=== PATIENT | male | born 1955 ===

== ENCOUNTER 2018-09-21 10:24 | Inpatient (IN) | payer OTHER ==
[2018-09-21] MEDS ORDERED: ASPIRIN 81 MG CHEWABLE TABLETS PO ONE (10:33)
--- NOTE | 2018-09-21 10:33 | PDOC ---
History of Present Illness - General Chief Complaint: Chest Pain Stated Complaint: CHEST PAIN Time Seen by Provider: 09/21/18 10:31 History Source: Patient Exam Limitations: No Limitations - History of Present Illness Initial Comments: 09/21/18 11:08 63y M hx of htn, hl, dm, presents with complaint of chest pain. Pt has been having intermittent episodes of cp for the past month that is described a heaviness in the left chest that radiates to the L arm and is occasionally associated with mild nausea/diaphorsis. Had one last night lasting approx 4 hours, then another one this morning about 45 min ago prior to arrival - currentlya pprox 09/18 (but was 9/10 last night). Pt denies any worsening of the pain with exertion, and the episodes occur randomly. Pt with recent travel to [place] but episodes predated travelling to [place]. No associated fever, cough, hemopytisis, calf pain. no association with food intake. denies smoking, recretional drug use, +social etoh family hx: mom with CABG, brother @61 with CAD Head Refrigerating Engineer: Dr. Joseline Leonardo Past History - Past Medical History Allergies/Adverse Reactions: Allergies Allergy/AdvReac Type Severity Reaction Status Date / Time No Known Allergies Allergy Verified 09/21/18 10:25 Home Medications: Ambulatory Orders Amlodipine Besylate 10 mg PO DAILY 09/21/18 Nebivolol HCl [Bystolic] 20 mg PO DAILY 09/21/18 Aspirin Coated [Ecotrin -] 325 mg PO DAILY tablet. 09/22/18 Atorvastatin Ca [Lipitor] 80 mg PO HS tablet 09/22/18 Heparin - 1,000 unit IVPUSH PRN PRN vial 09/22/18 Heparin - 5,000 unit IVPUSH PRN PRN #0 vial 09/22/18 Heparin - 5,000 unit SQ TID vial 09/22/18 Insulin (Levemir) [Levemir Vial] 54 units SQ HS units 09/22/18 Insulin Sliding Scale [Novolog Vial Sliding Scale -] 1 vial SQ ACHS units 09/22 Nitroglycerin Sublingual [Nitrostat -] 0.4 mg SL Q5M PRN tab 09/22/18 Pantoprazole Sodium [Protonix -] 40 mg PO BID tablet.ec 09/22/18 Review of Systems - Review of Systems Able to Perform ROS?: Yes Comments:: 09/21/18 11:12 Constitutional - no reported Fever, Chills, HEENT: no reported vision changes, sore throat Respiratory: no reported cough, sob, hemoptysis Cardiac: +chest pain, no reported palpitations, light headedness, leg swelling Abd/GI: no reported abd pain, nausea, vomiting, blood per rectum, melena, diarrhea : no reported dysuria, frequency, discharge Musculskelatal - no reported back pain, joint swelling skin - no reported bruising, erythema, rash neurological: no reported headache, numbness, focal weakness, tingling, ataxia, hematologic: no reported easy bruising, easy bleeding *Physical Exam - Vital Signs Last Vital Signs Temp Pulse Resp BP Pulse Ox 98 F 57 L 18 110/67 98 09/23/18 01:05 09/23/18 01:05 09/23/18 01:05 09/23/18 01:05 09/22/18 22:00 - Physical Exam Comments: 09/21/18 11:13 GENERAL: The patient is awake, alert, and fully oriented, Nontoxic - in no acute distress. HEAD: Normocephalic, atraumatic. EYES: extraocular movements intact, sclera anicteric, conjunctiva clear. ENT: Normal voice, Moist mucous membranes. NECK: Normal range of motion, supple LUNGS: Breath sounds equal, clear to auscultation bilaterally. No wheezes, no rhonchi, no rales. HEART: Regular rate and rhythm, normal S1 and S2 without murmur, rub or gallop. ABDOMEN: Soft, nontender, No guarding, no rebound. . No CVA tenderness EXTREMITIES: Normal range of motion, no edema. neg homans, no calft enderness NEUROLOGICAL: No facial assymetry, Normal speech, PSYCH: Normal mood, normal affect. SKIN: Warm, Dry, normal turgor, Heart Score/ECG Review - ECG Impressions Comment:: 09/21/18 11:13 Twelve-lead EKG was performed and reviewed by me. There is normal sinus rhythm with a normal rate. Rate of 68 First degree AV block no st changes suggestive of acute ischemia ED Treatment Course - LABORATORY CBC & Chemistry Diagram: 09/22/18 08:00 09/22/18 08:00 - ADDITIONAL ORDERS Additional order review: 09/22/18 09/22/18 09/21/18 08:00 06:46 23:58 RBC 4.86 MCV 90.4 MCHC 33.2 RDW 12.5 MPV 8.7 Neutrophils % 59.9 Lymphocytes % 26.3 D Monocytes % 7.9 Eosinophils % 5.2 H Basophils % 0.7 POC Glucometer 135 291 09/21/18 11:24 RBC 4.82 MCV 91.2 MCHC 33.4 RDW 12.8 MPV 8.4 Neutrophils % 65.5 Lymphocytes % 19.9 Monocytes % 9.9 Eosinophils % 4.0 Basophils % 0.7 POC Glucometer - RADIOLOGY Radiology Studies Ordered: Category Date Time Status CHEST PA & LAT [RAD] Stat Radiology 09/21/18 10:33 Completed - Medications Given in the ED: ED Medications Discontinued Medications Generic Name Dose Route Start Last Admin Trade Name Freq PRN Reason Stop Dose Admin Aspirin 162 mg 09/21/18 10:33 09/21/18 11:31 Asa - PO 09/21/18 10:34 Not Given ONCE ONE Atorvastatin Calcium 40 mg 09/21/18 17:43 09/21/18 18:38 Lipitor - PO 09/21/18 17:44 40 mg ONCE ONE Administration Atorvastatin Calcium 40 mg 09/21/18 20:30 09/22/18 03:23 Lipitor - PO 09/21/18 20:31 40 mg ONCE ONE Administration Clopidogrel Bisulfate 300 mg 09/22/18 08:16 09/22/18 17:10 Plavix - PO 09/22/18 08:17 Not Given ONCE ONE Heparin Sodium (Porcine) 5,000 unit 09/21/18 22:00 09/21/18 23:00 Heparin - SQ 5,000 unit TID LAURA Administration Magnesium Sulfate 1 gm 09/21/18 17:34 09/21/18 18:38 Magnesium Sulfate IVPB 09/21/18 17:35 1 gm ONCE ONE Administration Magnesium Sulfate 1 gm 09/22/18 09:55 09/22/18 10:50 Magnesium Sulfate IVPB 09/22/18 09:56 1 gm ONCE ONE Administration Nitroglycerin 0.4 mg 09/21/18 11:12 09/21/18 11:15 Nitrostat - SL 09/21/18 11:13 0.4 mg ONCE ONE Administration Pantoprazole Sodium 40 mg 09/21/18 22:00 09/22/18 09:52 Protonix - PO 40 mg BID LAURA Administration Medical Decision Making - Medical Decision Making 09/21/18 11:15 ddx - acs, gastritis, will ck trops, cmp, cbc ekg to screen for acs cxr to screen for pulm disease will aaron cardiology regarding dispo - would like pt to get expediated sterss test 09/21/18 12:36 labs unremarkable will discuss with dr. Leonardo (cardiology) regarding disposition 09/21/18 12:[address] leonardo recommends obtaining 2nd trop / ekg - as well as dimer to screen for pe if negative pt can be dc to fu with him on sunday for stress and foruther eavluation 09/21/18 15:32 pts trop bumped to 0.13 will admit for further management will notify his cardiolgoist no current cp 09/21/18 16:[address] Spaulding (covernig for dr. Virk) - agree with admission and inpatient workup also aaron Torres - agree with admission to [facility] for further management under Dr. Carrillo's service Dr. Leonardo was notified - agrees pt shoould stay for further workup Case discussed in detail with admitting physician including history, physical exam and ancillary studies. Admitting physician has assumed care for the patient, will follow all pending diagnostics and will complete the evaluation and treatment. *DC/Admit/Observation/Transfer Diagnosis at time of Disposition: Acute coronary syndrome - Discharge Dispostion Condition at time of disposition: Stable Decision to Admit order: Yes - Referrals - Patient Instructions - Post Discharge Activity
[2018-09-21] MEDS ORDERED: NITROGLYCERIN SUBLINGUAL 1/150 0.4 MG TAB SL ONE (11:12)
[2018-09-21] MEDS ORDERED: NITROGLYCERIN SUBLINGUAL 1/150 0.4 MG TAB ONE (11:19)
[2018-09-21 11:42] LABS: BASO % 0.7 % (0-2.0); HEMOGLOBIN 14.7 GM/dl (11.7-16.9); LYMPH % 19.9 % (8-40); MCH 30.5 pg (25.7-33.7); MCHC 33.4 g/dl (32.0-35.9); MEAN CELL VOLUME 91.2 fl (80-96); MEAN PLT VOLUME 8.4 fl (7.5-11.1); MONO % 9.9 % (3.8-10.2); NEUT % 65.5 % (42.8-82.8); PLATELET COUNT 328 K/MM3 (134-434); RBC 4.82 M/mm3 (4.00-5.60); RDW 12.8 % (11.9-15.9); WHITE BLOOD COUNT 9.6 K/mm3 (4.0-10.8)
[2018-09-21 11:47] LABS: INR 1.02 (0.82-1.09); PROTHROMBIN TIME (PATIENT) 11.4 SEC (10.2-13.0)
[2018-09-21 11:50] LABS: ALBUMIN 3.4 g/dl (3.4-5.0); ALK PHOS 86 U/L (45-117); ANION GAP 9 MMOL/L (8-16); BILIRUBIN,TOTAL 0.4 mg/dl (0.2-1); BLOOD UREA NITROGEN 11 mg/dl (7-18); CALCIUM 8.6 mg/dl (8.5-10); CHLORIDE 101 mmol/L (98-107); CO2 23 mmol/L (21-32); CREATININE 0.9 mg/dl (0.55-1.3); GLUCOSE,RANDOM 243 mg/dl (74-106); MAGNESIUM 1.9 mg/dL (1.8-2.4); POTASSIUM 4.2 mmol/L (3.5-5.1); SGOT/AST 22 U/L (15-37); SGPT/ALT 21 U/L (13-61); SODIUM 133 mmol/L (136-145); TOT PROT 6.6 g/dl (6.4-8.2)
--- NOTE | 2018-09-21 17:18 | HP ---
CHIEF COMPLAINT: Chest pain Inventory Coordinator: Dr. Joseline Leonardo HISTORY OF PRESENT ILLNESS: 63 year-old male with a PMH significant for HTN, HLD, IDDM, and acid reflux. Presented to the ED with a complaint of chest pain. Patient's first episode of chest pain was on September 03 while traveling in a car in [facility] on vacation. He was seen at a local hospital, was told his ECG looked OK, and was given an antacid. Since then the patient has had similar intermittent episodes. He describes the pain as a heaviness in the left chest that radiates to the left arm and is occasionally associated with mild nausea and diaphoresis. The pain is never associated with exertion and occurs randomly, e.g. while sleeping, reading, riding in a car. Patient works out almost daily, lifts weights, and has never had the pain during exercise. Last night patient was awoken from sleep with the pain. He took an antacid and was able to go back to sleep. The pain lasted about 4 hours. This morning, patient woke up feeling well, ate breakfast, and was reading when the pain recurred. He came to the ED where he was given nitroglycerin and the pain was relieved. Patient denies SOB, DAVIDSON, lower extremity swelling, orthopnea, dizziness, palpitations. He denies fever, sweats, chills. He denies recent illness. His diabetes is well-controlled, his last A1C was ~7. ER course was notable for: (1) Troponin 0.03-->0.13 Recent Travel: [facility] PAST MEDICAL HISTORY: Hypertension Hyperlipidemia IDDM PAST SURGICAL HISTORY: Bilateral knee replacements Social History: lives in [place] with and son, retired from [employer] Smoking: never Alcohol: occasional Drugs: no Family History: Mother had CABG, brother @ 61 with CAD Allergies No Known Allergies Allergy (Verified 09/21/18 10:25) HOME MEDICATIONS: Home Medications Medication Instructions Recorded Amlodipine Besylate 10 mg PO DAILY 09/21/18 Aspirin [ASA -] 4 tab PO DAILY 09/21/18 Dapagliflozin/Metformin HCl 1 each PO DAILY 09/21/18 [Xigduo Xr 10 mg-500 mg Tablet] Insulin Degludec [Tresiba 54 unit SQ DAILY 09/21/18 Flextouch U-100] Nebivolol HCl [Bystolic] 20 mg PO DAILY 09/21/18 Semaglutide [Ozempic] 1 mg SQ WEEKLY 09/21/18 REVIEW OF SYSTEMS CONSTITUTIONAL: Absent: fever, chills, diaphoresis, generalized weakness, malaise, loss of appetite, weight change HEENT: Absent: rhinorrhea, nasal congestion, throat pain, throat swelling, difficulty swallowing, mouth swelling, ear pain, eye pain, visual changes CARDIOVASCULAR: +left sided chest pain, left arm pain/numbness, intermittent; occasionally associated with nausea, diaphoresis Absent: chest pain, syncope, palpitations, irregular heart rate, lightheadedness , peripheral edema RESPIRATORY: Absent: cough, shortness of breath, dyspnea with exertion, orthopnea, wheezing, stridor, hemoptysis GASTROINTESTINAL: Absent: abdominal pain, abdominal distension, nausea, vomiting, diarrhea, constipation, melena, hematochezia GENITOURINARY: Absent: dysuria, frequency, urgency, hesitancy, hematuria, flank pain, genital pain MUSCULOSKELETAL: Absent: myalgia, arthralgia, joint swelling, back pain, neck pain SKIN: Absent: rash, itching, pallor HEMATOLOGIC/IMMUNOLOGIC: Absent: easy bleeding, easy bruising, lymphadenopathy, frequent infections ENDOCRINE: Absent: unexplained weight gain, unexplained weight loss, heat intolerance, cold intolerance NEUROLOGIC: Absent: headache, focal weakness or paresthesias, dizziness, unsteady gait, seizure, mental status changes, bladder or bowel incontinence PSYCHIATRIC: Absent: anxiety, depression, suicidal or homicidal ideation, hallucinations. PHYSICAL EXAMINATION Vital Signs - 24 hr 09/21/18 09/21/18 09/21/18 10:24 12:08 14:52 Temperature 98.5 F Pulse Rate 75 Pulse Rate [ 60 60 Right] Respiratory 20 17 20 Rate Blood Pressure 144/85 Blood Pressure 107/75 116/63 [Right Arm] O2 Sat by Pulse 99 98 96 Oximetry (%) 09/21/18 15:47 Temperature Pulse Rate Pulse Rate [ 63 Right] Respiratory 18 Rate Blood Pressure Blood Pressure 119/72 [Right Arm] O2 Sat by Pulse 95 Oximetry (%) GENERAL: Awake, alert, and fully oriented, in no acute distress. HEAD: Normal with no signs of trauma. EYES: Pupils equal, round and reactive to light, extraocular movements intact, sclera anicteric, conjunctiva clear. No lid lag. EARS, NOSE, THROAT: Ears normal, nares patent, oropharynx clear without exudates. Moist mucous membranes. NECK: Normal range of motion, supple without lymphadenopathy, JVD, or masses. LUNGS: Breath sounds equal, clear to auscultation bilaterally. No wheezes, and no crackles. No accessory muscle use. HEART: Regular rate and rhythm, normal S1 and S2 ABDOMEN: Soft, nontender, not distended MUSCULOSKELETAL: Normal range of motion at all joints. No bony deformities or tenderness. No CVA tenderness. UPPER EXTREMITIES: 2+ pulses, warm, well-perfused. No cyanosis. No clubbing. No peripheral edema. LOWER EXTREMITIES: 2+ pulses, warm, well-perfused. No calf tenderness. No peripheral edema. NEUROLOGICAL: Cranial nerves II-XII intact. Normal speech. Normal gait. Laboratory Results - last 24 hr 09/21/18 09/21/18 09/21/18 11:24 11:24 11:24 WBC 9.6 RBC 4.82 Hgb 14.7 Hct 44.0 MCV 91.2 MCH 30.5 MCHC 33.4 RDW 12.8 Plt Count 328 MPV 8.4 Absolute Neuts (auto) 6.2 Neutrophils % 65.5 Lymphocytes % 19.9 Monocytes % 9.9 Eosinophils % 4.0 Basophils % 0.7 PT with INR 11.4 INR 1.02 D-Dimer Sodium 133 L Potassium 4.2 Chloride 101 Carbon Dioxide 23 Anion Gap 9 BUN 11 Creatinine 0.9 Creat Clearance w eGFR 85.50 Random Glucose 243 H Calcium 8.6 Magnesium 1.9 Total Bilirubin 0.4 AST 22 ALT 21 Alkaline Phosphatase 86 Creatine Kinase Troponin I Total Protein 6.6 Albumin 3.4 09/21/18 09/21/18 09/21/18 11:24 11:24 13:06 WBC RBC Hgb Hct MCV MCH MCHC RDW Plt Count MPV Absolute Neuts (auto) Neutrophils % Lymphocytes % Monocytes % Eosinophils % Basophils % PT with INR INR D-Dimer < 215 Sodium Potassium Chloride Carbon Dioxide Anion Gap BUN Creatinine Creat Clearance w eGFR Random Glucose Calcium Magnesium Total Bilirubin AST ALT Alkaline Phosphatase Creatine Kinase 114 Troponin I < 0.03 Total Protein Albumin 09/21/18 09/21/18 14:50 14:50 WBC RBC Hgb Hct MCV MCH MCHC RDW Plt Count MPV Absolute Neuts (auto) Neutrophils % Lymphocytes % Monocytes % Eosinophils % Basophils % PT with INR INR D-Dimer Sodium Potassium Chloride Carbon Dioxide Anion Gap BUN Creatinine Creat Clearance w eGFR Random Glucose Calcium Magnesium Total Bilirubin AST ALT Alkaline Phosphatase Creatine Kinase 116 Troponin I 0.13 H Total Protein Albumin ASSESSMENT/PLAN 63 year-old male with a PMH significant for HTN, HLD, IDDM, and acid reflux. Placed on observation for chest pain and elevated troponin. Chest pain --troponin 0.03-->0.13; third one at 6:00pm --CXR unremarkable --ECG not suggestive of acute ischemic event --telemetry monitoring --continue ASA, nebivolol, amlodipine; start Lipitor 40mg; nitro SL PRN --A1C, TSH, lipid panel ordered --Wells score zero, d-dimer <215, low suspicion for PE, no further workup --follows regularly with a it program auditor, last nuclear stress 3 years ago negative --cardiology consult requested Acid reflux --takes Nexium on occasion for acid reflux, has recently modified his diet and the episodes occur less frequently --no h/o ulcers, never had EGD --protonix PO BID --chest pain episodes tend to occur after eating, some associated nausea; US gallbladder Hypertension --BP stable --continue nebivolol, amlodipine Hyperlipidemia --start Lipitor IDDM --Novolog sliding scale coverage --Levemir 54U qhs FEN Fluids: PO intake adequate Electrolytes: replete as indicated; Mg>2, K>4 Nutrition: NPO pending next troponin DVT prophylaxis: subq heparin Dispo: continues to require observation. Full code. Visit type - Emergency Visit Emergency Visit: Yes ED Registration Date: 09/21/18 Care time: The patient presented to the Emergency Department on the above date and was hospitalized for further evaluation of their emergent condition. - New Patient This patient is new to me today: Yes Date on this admission: 09/21/18 - Critical Care Critical Care patient: No
[2018-09-21] MEDS ORDERED: MAGNESIUM SULF 50% (8.12 MEQ/2 ML-1 GM VIAL) IVPB ONE (17:34)
[2018-09-21] MEDS ORDERED: ATORVASTATIN CA 40 MG TABLET (FP) PO ONE ×2 (17:43→20:30)
[2018-09-21] MEDS ORDERED: NITROGLYCERIN SUBLINGUAL 1/150 0.4 MG TAB SL PRN (17:45)
[2018-09-21 18:20] VITALS: BMI 27.5
--- NOTE | 2018-09-21 19:57 | HOSP ---
Subjective - Review of Symptoms Events since last encounter: Hospitalist Encounter Patient's Troponin trending upward 3rd 0.34 Subjective: Assessment: 63 year-old male with a PMH significant for HTN, HLD, IDDM, and Acid Reflux. Placed on observation for chest pain and elevated Troponin I. Plan: Call placed to Dr. Spaulding EKG- stat Will transfer to [facility] Telemetry when bed available Continue with current regimen Discussed with Dr. Spaulding, no change in current regimen, would like patient to be transferred to [facility]- Stress Test 06:20 Patient reported to RN that he was having CP Heparin Protocol initiated Per RN Dr. Spaulding aware Patient awaiting Telemetry Bed at [facility] Will update Day REDEVELOPMENT MANAGER of this mornings events Physical Examination Vital Signs: Vital Signs Temperature 97.9 F 09/21/18 17:54 Pulse Rate 60 09/21/18 17:54 Respiratory Rate 18 09/21/18 17:54 Blood Pressure 132/79 09/21/18 17:54 O2 Sat by Pulse Oximetry (%) 95 09/21/18 15:47 Labs: CBC, BMP 09/21/18 11:24 09/21/18 11:24
[2018-09-21 21:27] LABS: CHOLESTEROL 134 mg/dl (50-200); HDL CHOLESTEROL 32 mg/dl (40-60); LDL CHOLESTEROL (ONLY DFH) 70 mg/dl (5-100); TRIGLYCERIDES 158 mg/dl (0-150)
[2018-09-21] MEDS: INSULIN SLIDING SCALE (NOVOLOG) 1 VIAL SQ SCH (22:00)
[2018-09-21] MEDS ORDERED: HEPARIN NA (PORCINE) 5,000 UNITS/ML 1ML VIAL SQ SCH (22:00)
[2018-09-22] MEDS: PANTOPRAZOLE 40 MG TABLET (FP) PO SCH ×2 (03:21→09:52)
[2018-09-22] MEDS: INSULIN (LEVEMIR) 100 UNITS/ML UNITS SQ SCH ×2 (03:21→21:44)
[2018-09-22] MEDS ORDERED: HEPARIN NA (PORCINE) 5,000 UNITS/ML 1ML VIAL IVPUSH PRN ×2 (06:33)
[2018-09-22] MEDS: HEPARIN INFUSION - 25,000 UNITS/500 ML INFUS.BAG IVPB SCH (06:50)
[2018-09-22] MEDS: INSULIN SLIDING SCALE (NOVOLOG) 1 VIAL SQ SCH ×4 (06:50→22:22)
--- NOTE | 2018-09-22 08:08 | CON.CARD ---
Consult Consult Specialty:: Cardiology Referred by:: Hospitalist Reason for Consultation:: Cardiar evaluation - History of Present Illness Chief Complaint: Chest pain History of Present Illness: Patient is a 63 year old male of [place] with underlying history of HTN, hypercholesterolemia and DM who presents with left substernal chest pressure radiating to left arm. This happened several time prompting him to come into the hospital. His initial troponin was negative, but it has increased to 0.75. He had chest pressure again last night and thus was started on Heparin drip. He appears comfortable this morning. He denies shortness of breath or palpitations. He denies paroxysmal nocturnal dyspnea or orthopnea. He denies fever or chills. He denies nausea, vomiting, diarrhea or abdominal pain. He denies headache or lightheadedness. Cruise Director: Jorden Grande MD - History Source History Provided By: Patient, Medical Record Limitations to Obtaining History: No Limitations - Past Medical History Cardio/Vascular: Yes: HTN, Hyperlipdemia Endocrine: Yes: Diabetes Mellitus - Past Surgical History Past Surgical History: Yes: Joint Replacement - Alcohol/Substance Use Hx Alcohol Use: Yes (DAILY 2-3 SHOTS VODKA) - Smoking History Smoking history: Never smoked Have you smoked in the past 12 months: No Home Medications - Allergies Allergies/Adverse Reactions: Allergies Allergy/AdvReac Type Severity Reaction Status Date / Time No Known Allergies Allergy Verified 09/21/18 10:25 - Home Medications Home Medications: Ambulatory Orders Amlodipine Besylate 10 mg PO DAILY 09/21/18 Dapagliflozin/Metformin HCl [Xigduo Xr 10 mg-500 mg Tablet] 1 each PO DAILY Insulin Degludec [Tresiba Flextouch U-100] 54 unit SQ DAILY 09/21/18 Nebivolol HCl [Bystolic] 20 mg PO DAILY 09/21/18 Rosuvastatin Calcium [Crestor] 5 mg PO DAILY 09/21/18 Semaglutide [Ozempic] 1 mg SQ WEEKLY 09/21/18 Family Disease History - Family Disease History Other Family History: History of DM and HTN Review of Systems - Review of Systems Constitutional: denies: Chills, Fever Cardiovascular: reports: Chest Pain. denies: Palpitations, Shortness of Breath Respiratory: denies: Cough, Hemoptysis, Orthopnea, PND, SOB, SOB on Exertion Gastrointestinal: denies: Abdominal Pain, Constipation, Diarrhea, Melena, Nausea , Rectal Bleeding, Vomiting Genitourinary: denies: Dysuria, Hematuria Neurological: denies: Dizziness, Headache, Seizure, Syncope Vital Signs: Vital Signs Temperature 98.3 F 09/22/18 05:00 Pulse Rate 66 09/22/18 05:00 Respiratory Rate 20 09/22/18 05:00 Blood Pressure 155/76 09/22/18 05:00 O2 Sat by Pulse Oximetry (%) 100 09/22/18 05:00 Eyes: Yes: PERRL HENT: Yes: Atraumatic Neck: Yes: Supple Respiratory: Yes: CTA Bilaterally Gastrointestinal: Yes: Normal Bowel Sounds, Soft. No: Tenderness Cardiovascular: Yes: Regular Rate and Rhythm JVD: No Carotid Bruit: No PMI: Non-Displaced Heart Sounds: Yes: S1, S2. No: Gallop Murmur: No: Systolic Murmur, Diastolic Murmur Edema: No - Other Data Labs, Other Data: CBC, BMP 09/21/18 11:24 09/21/18 11:24 INR, PTT INR 1.02 (0.82-1.09) 09/21/18 11:24 Troponin, BNP 09/21/18 09/21/18 09/21/18 11:24 14:50 19:00 Troponin I < 0.03 0.13 H 0.34 H 09/22/18 09/22/18 00:01 00:05 Troponin I Cancelled 0.75 H* Sinus rhythm 1st degree AV block Problem List - Problems (1) NSTEMI (non-ST elevated myocardial infarction) Code(s): I21.4 - NON-ST ELEVATION (NSTEMI) MYOCARDIAL INFARCTION (2) Diabetes mellitus Code(s): E11.9 - TYPE 2 DIABETES MELLITUS WITHOUT COMPLICATIONS (3) HTN (hypertension) Code(s): I10 - ESSENTIAL (PRIMARY) HYPERTENSION (4) Hypercholesterolemia Code(s): E78.00 - PURE HYPERCHOLESTEROLEMIA, UNSPECIFIED (5) Acute coronary syndrome Code(s): I24.9 - ACUTE ISCHEMIC HEART DISEASE, UNSPECIFIED Assessment/Plan 1. Clinical presentation c/w ACS/NSTEMI 2. HTN 3. DM 4. Hypercholesterolemia 5. ? COPD PLAN: 1. Continue Heparin drip 2. ASA +/- Plavix or Brilinta 3. Continue Bystolic 20 mg QD 4. Lipitor 80 mg QD 5. Continue Amlodipine 6. Consider early cardiac catheterization/coronary angiography. His human geography faculty member is affiliated with [facility]. Will attempt to reach out to him and initiate transfer Discussed with patient Further plans are to follow Anton Spaulding MD
[2018-09-22 08:40] LABS: BASO % 0.7 % (0-2.0); EOS % 5.2 % (0-4.5); HEMATOCRIT 43.9 % (35.4-49); HEMOGLOBIN 14.6 GM/dl (11.7-16.9); LYMPH % 26.3 % (8-40); MCHC 33.2 g/dl (32.0-35.9); MEAN CELL VOLUME 90.4 fl (80-96); MEAN PLT VOLUME 8.7 fl (7.5-11.1); MONO % 7.9 % (3.8-10.2); NEUT % 59.9 % (42.8-82.8); PLATELET COUNT 321 K/MM3 (134-434); RBC 4.86 M/mm3 (4.00-5.60); RDW 12.5 % (11.9-15.9); WHITE BLOOD COUNT 9.6 K/mm3 (4.0-10.8)
[2018-09-22 08:43] LABS: ALBUMIN 3.2 g/dl (3.4-5.0); ALK PHOS 81 U/L (45-117); ANION GAP 7 MMOL/L (8-16); BILIRUBIN,TOTAL 0.5 mg/dl (0.2-1); BLOOD UREA NITROGEN 10 mg/dl (7-18); CALCIUM 8.8 mg/dl (8.5-10); CHLORIDE 101 mmol/L (98-107); CO2 27 mmol/L (21-32); CREATININE 0.7 mg/dl (0.55-1.3); GLUCOSE,RANDOM 135 mg/dl (74-106); POTASSIUM 4.1 mmol/L (3.5-5.1); SGOT/AST 17 U/L (15-37); SGPT/ALT 20 U/L (13-61); SODIUM 135 mmol/L (136-145); TOT PROT 6.3 g/dl (6.4-8.2)
[2018-09-22] MEDS: CLOPIDOGREL BISULFATE 300 MG TABLET PO ONE ×2 (09:01→17:10)
--- NOTE | 2018-09-22 09:25 | DS ---
Physical Exam: SUBJECTIVE: Patient seen and examined at bedside. No further episodes of chest pain since ED. OBJECTIVE: Vital Signs (72 hours) 09/21/18 09/21/18 09/21/18 10:24 12:08 14:52 Temperature 98.5 F Pulse Rate 75 Pulse Rate [ 60 60 Right] Respiratory 20 17 20 Rate Blood Pressure 144/85 Blood Pressure 107/75 116/63 [Right Arm] O2 Sat by Pulse 99 98 96 Oximetry (%) 09/21/18 09/21/18 09/21/18 15:47 17:54 19:58 Temperature 97.9 F 98.4 F Pulse Rate 60 60 Pulse Rate [ 63 Right] Respiratory 18 18 18 Rate Blood Pressure 132/79 115/70 Blood Pressure 119/72 [Right Arm] O2 Sat by Pulse 95 94 L Oximetry (%) 09/21/18 09/22/18 09/22/18 22:39 00:06 01:53 Temperature 97.7 F 98.0 F 97.7 F Pulse Rate 77 63 66 Pulse Rate [ Right] Respiratory 19 18 19 Rate Blood Pressure 127/60 122/69 138/73 Blood Pressure [Right Arm] O2 Sat by Pulse 100 93 L 96 Oximetry (%) 09/22/18 09/22/18 05:00 07:55 Temperature 98.3 F 98.0 F Pulse Rate 66 56 L Pulse Rate [ Right] Respiratory 20 18 Rate Blood Pressure 155/76 132/79 Blood Pressure [Right Arm] O2 Sat by Pulse 100 Oximetry (%) PHYSICAL EXAM GENERAL: The patient is awake, alert, and fully oriented, in no acute distress. LUNGS: Breath sounds equal, clear to auscultation bilaterally, no wheezes, no crackles, no accessory muscle use. HEART: Regular rate and rhythm, S1, S2 ABDOMEN: Soft, nontender, nondistended EXTREMITIES: 2+ pulses, warm, well-perfused, no edema. NEUROLOGICAL: Cranial nerves II through XII grossly intact. Normal speech, gait not observed. Laboratory Tests 09/21/18 09/21/18 09/21/18 11:24 11:24 11:24 WBC 9.6 RBC 4.82 Hgb 14.7 Hct 44.0 MCV 91.2 MCH 30.5 MCHC 33.4 RDW 12.8 Plt Count 328 MPV 8.4 Absolute Neuts (auto) 6.2 Neutrophils % 65.5 Lymphocytes % 19.9 Monocytes % 9.9 Eosinophils % 4.0 Basophils % 0.7 PT with INR 11.4 INR 1.02 D-Dimer Sodium 133 L Potassium 4.2 Chloride 101 Carbon Dioxide 23 Anion Gap 9 BUN 11 Creatinine 0.9 Creat Clearance w eGFR 85.50 POC Glucometer Random Glucose 243 H Hemoglobin A1c % Calcium 8.6 Magnesium 1.9 Total Bilirubin 0.4 AST 22 ALT 21 Alkaline Phosphatase 86 Creatine Kinase Troponin I Total Protein 6.6 Albumin 3.4 Triglycerides Cholesterol Total LDL Cholesterol HDL Cholesterol TSH 09/21/18 09/21/18 09/21/18 11:24 11:24 13:06 WBC RBC Hgb Hct MCV MCH MCHC RDW Plt Count MPV Absolute Neuts (auto) Neutrophils % Lymphocytes % Monocytes % Eosinophils % Basophils % PT with INR INR D-Dimer < 215 Sodium Potassium Chloride Carbon Dioxide Anion Gap BUN Creatinine Creat Clearance w eGFR POC Glucometer Random Glucose Hemoglobin A1c % Calcium Magnesium Total Bilirubin AST ALT Alkaline Phosphatase Creatine Kinase 114 Troponin I < 0.03 Total Protein Albumin Triglycerides Cholesterol Total LDL Cholesterol HDL Cholesterol TSH 09/21/18 09/21/18 09/21/18 14:50 14:50 19:00 WBC RBC Hgb Hct MCV MCH MCHC RDW Plt Count MPV Absolute Neuts (auto) Neutrophils % Lymphocytes % Monocytes % Eosinophils % Basophils % PT with INR INR D-Dimer Sodium Potassium Chloride Carbon Dioxide Anion Gap BUN Creatinine Creat Clearance w eGFR POC Glucometer Random Glucose Hemoglobin A1c % Calcium Magnesium Total Bilirubin AST ALT Alkaline Phosphatase Creatine Kinase 116 Troponin I 0.13 H 0.34 H Total Protein Albumin Triglycerides Cholesterol Total LDL Cholesterol HDL Cholesterol TSH 09/21/18 09/21/18 09/21/18 19:00 19:00 19:00 WBC RBC Hgb Hct MCV MCH MCHC RDW Plt Count MPV Absolute Neuts (auto) Neutrophils % Lymphocytes % Monocytes % Eosinophils % Basophils % PT with INR INR D-Dimer Sodium Potassium Chloride Carbon Dioxide Anion Gap BUN Creatinine Creat Clearance w eGFR POC Glucometer Random Glucose Hemoglobin A1c % 7.6 H Calcium Magnesium Total Bilirubin AST ALT Alkaline Phosphatase Creatine Kinase Troponin I Total Protein Albumin Triglycerides 158 H Cholesterol 134 Total LDL Cholesterol 70 HDL Cholesterol 32 L TSH 2.00 09/21/18 09/22/18 09/22/18 23:58 00:01 00:05 WBC RBC Hgb Hct MCV MCH MCHC RDW Plt Count MPV Absolute Neuts (auto) Neutrophils % Lymphocytes % Monocytes % Eosinophils % Basophils % PT with INR INR D-Dimer Sodium Potassium Chloride Carbon Dioxide Anion Gap BUN Creatinine Creat Clearance w eGFR POC Glucometer 291 Random Glucose Hemoglobin A1c % Calcium Magnesium Total Bilirubin AST ALT Alkaline Phosphatase Creatine Kinase Troponin I Cancelled 0.75 H* Total Protein Albumin Triglycerides Cholesterol Total LDL Cholesterol HDL Cholesterol TSH 09/22/18 09/22/18 09/22/18 06:46 08:00 08:00 WBC 9.6 RBC 4.86 Hgb 14.6 Hct 43.9 MCV 90.4 MCH 30.0 MCHC 33.2 RDW 12.5 Plt Count 321 MPV 8.7 Absolute Neuts (auto) 5.7 Neutrophils % 59.9 Lymphocytes % 26.3 D Monocytes % 7.9 Eosinophils % 5.2 H Basophils % 0.7 PT with INR INR D-Dimer Sodium 135 L Potassium 4.1 Chloride 101 Carbon Dioxide 27 Anion Gap 7 L BUN 10 Creatinine 0.7 Creat Clearance w eGFR 114.27 POC Glucometer 135 Random Glucose 135 H Hemoglobin A1c % Calcium 8.8 Magnesium 2.0 Total Bilirubin 0.5 AST 17 ALT 20 Alkaline Phosphatase 81 Creatine Kinase Troponin I Total Protein 6.3 L Albumin 3.2 L Triglycerides Cholesterol Total LDL Cholesterol HDL Cholesterol TSH 09/22/18 08:00 WBC RBC Hgb Hct MCV MCH MCHC RDW Plt Count MPV Absolute Neuts (auto) Neutrophils % Lymphocytes % Monocytes % Eosinophils % Basophils % PT with INR INR D-Dimer Sodium Potassium Chloride Carbon Dioxide Anion Gap BUN Creatinine Creat Clearance w eGFR POC Glucometer Random Glucose Hemoglobin A1c % Calcium Magnesium Total Bilirubin AST ALT Alkaline Phosphatase Creatine Kinase Troponin I 0.33 H Total Protein Albumin Triglycerides Cholesterol Total LDL Cholesterol HDL Cholesterol TSH HOSPITAL COURSE: Date of Admission:09/21/18 Date of Discharge: 09/22/18 Pre hospital course 63 year-old male with a PMH significant for HTN, HLD, IDDM, and acid reflux. Presented to the ED with a complaint of chest pain. Patient's first episode of chest pain was on September 03 while traveling in a car in [facility] on vacation. He was seen at a local hospital, was told his ECG looked OK, and was given an antacid. Since then the patient has had similar intermittent episodes. He describes the pain as a heaviness in the left chest that radiates to the left arm and is occasionally associated with mild nausea and diaphoresis. The pain is never associated with exertion and occurs randomly, e.g. while sleeping, reading, riding in a car. Patient works out almost daily, lifts weights, and has never had the pain during exercise. Last night patient was awoken from sleep with the pain. He took an antacid and was able to go back to sleep. The pain lasted about 4 hours. This morning, patient woke up feeling well, ate breakfast, and was reading when the pain recurred. He came to the ED where he was given nitroglycerin and the pain was relieved. Patient denies SOB, DAVIDSON, lower extremity swelling, orthopnea, dizziness, palpitations. He denies fever, sweats, chills. He denies recent illness. His diabetes is well-controlled, his last A1C was ~7. ER course (1) Troponin 0.03-->0.13 Subsequent hospital course NSTEMI --troponin 0.03-->0.13-->0.34-->0.75-->0.33 --no ST elevations; ECG compared to 09/03/18 done in [place] (on patient's IPad) , no significant changes --continue ASA, nebivolol, amlodipine, Lipitor --Plavix 300mg x 1 on 09/22, heparin drip started, first PTT due at 1:00pm --follows regularly with a macaroni maker Dr. Joseline Leonardo [place]; last nuclear stress 3 years ago negative Acid reflux --takes Nexium on occasion for acid reflux --no h/o ulcers, never had EGD --protonix Hypertension --BP stable Hyperlipidemia --start Lipitor IDDM --Novolog sliding scale coverage --Levemir 54U qhs Dispo: accepted for transfer at [facility] by Dr. Pizarro; full code. Minutes to complete discharge: 35 Discharge Summary Reason For Visit: ACUTE ISCHEMIC HEART DISEASE, UNSPECIFIED Current Active Problems Acute coronary syndrome (Acute) Diabetes mellitus (Acute) HTN (hypertension) (Acute) Hypercholesterolemia (Acute) NSTEMI (non-ST elevated myocardial infarction) (Acute) Condition: Stable - Instructions Disposition: TRANSFER ACUTE CARE/OTHER HOSP - Home Medications Comprehensive Discharge Medication List: Ambulatory Orders Amlodipine Besylate 10 mg PO DAILY 09/21/18 Dapagliflozin/Metformin HCl [Xigduo Xr 10 mg-500 mg Tablet] 1 each PO DAILY Insulin Degludec [Tresiba Flextouch U-100] 54 unit SQ DAILY 09/21/18 Nebivolol HCl [Bystolic] 20 mg PO DAILY 09/21/18 Rosuvastatin Calcium [Crestor] 5 mg PO DAILY 09/21/18 Semaglutide [Ozempic] 1 mg SQ WEEKLY 09/21/18 This patient is new to me today: No Emergency Visit: Yes ED Registration Date: 09/21/18 Care time: The patient presented to the Emergency Department on the above date and was hospitalized for further evaluation of their emergent condition. Critical Care patient: Yes Total Critical Care Time (in minutes): 60 Critical Care Statement: The care of this patient involved high complexity decision making to prevent further life threatening deterioration of the patient 's condition and/or to evaluate & treat vital organ system(s) failure or risk of failure. - Discharge Referral Referred to [facility] Med [facility].C.: No
[2018-09-22] MEDS: NEBIVOLOL 10 MG TABLET (FP) PO SCH (09:51)
[2018-09-22] MEDS: ASPIRIN 325 MG ENTERIC COATED TABLET (FP) PO SCH (09:51)
[2018-09-22] MEDS: amLODIPine BESYLATE 10 MG TABLET (FP) PO SCH (09:52)
[2018-09-22] MEDS ORDERED: MAGNESIUM SULF 50% (8.12 MEQ/2 ML-1 GM VIAL) IVPB ONE (09:55)
[2018-09-22] MEDS: PANTOPRAZOLE SODIUM 40 MG VIAL IVPUSH SCH (11:03)
[2018-09-22] MEDS ORDERED: INSULIN (NOVOLOG) ASPART 100 UNITS/ML 10ML VIAL ONE (11:41)
[2018-09-22] MEDS ORDERED: ATORVASTATIN CA 80 MG TABLET (FP) PO SCH (22:00)
[2018-09-22] MEDS ORDERED: ATORVASTATIN CA 40 MG TABLET (FP) PO SCH (22:00)
[2018-09-23] MEDS: INSULIN SLIDING SCALE (NOVOLOG) 1 VIAL SQ SCH (06:15)
[2018-09-23] MEDS: HEPARIN INFUSION - 25,000 UNITS/500 ML INFUS.BAG IVPB SCH (06:21)
[2018-09-23] MEDS: ASPIRIN 325 MG ENTERIC COATED TABLET (FP) PO SCH (09:41)
[2018-09-23] MEDS: amLODIPine BESYLATE 10 MG TABLET (FP) PO SCH (09:41)
[2018-09-23] MEDS: PANTOPRAZOLE SODIUM 40 MG VIAL IVPUSH SCH (09:41)
[2018-09-23] MEDS: NEBIVOLOL 10 MG TABLET (FP) PO SCH (09:46)
[2018-09-23 10:42] VITALS: BP 146/78; PULSE 56; TEMP 97.8
--- NOTE | 2018-09-23 10:42 | EKG ---
Test Reason : Blood Pressure : / mmHG Vent. Rate : 068 BPM Atrial Rate : 068 BPM P-R Int : 212 ms QRS Dur : 074 ms QT Int : 386 ms P-R-T Axes : 061 076 054 degrees QTc Int : 410 ms SINUS RHYTHM WITH 1ST DEGREE A-V BLOCK OTHERWISE NORMAL ECG NO PREVIOUS ECGS AVAILABLE Confirmed by KWESI SKAGGS, KATRINA ([id number]) on 09/23/2018 10:41:32 AM Referred By: SERA Confirmed By:KATRINA OROSCO MD
--- NOTE | 2018-09-23 10:42 | EKG ---
Test Reason : Blood Pressure : / mmHG Vent. Rate : 060 BPM Atrial Rate : 060 BPM P-R Int : 208 ms QRS Dur : 088 ms QT Int : 424 ms P-R-T Axes : 055 052 040 degrees QTc Int : 424 ms NORMAL SINUS RHYTHM NORMAL ECG WHEN COMPARED WITH ECG OF 21-SEP-2018 10:40, NO SIGNIFICANT CHANGE WAS FOUND Confirmed by KATRINA OROSCO MD ([id number]) on 09/23/2018 10:42:03 AM Referred By: SERA Confirmed By:KATRINA OROSCO MD
--- NOTE | 2018-09-23 11:36 | ECHO ---
Name: ZENAIDA PARKER Exam:Adult Echocardiogram Study Date: 09/23/2018 08:17 AM Age: 63 yrs Reason For Study: Chest pain Height: 70 in Weight: 192 lb BSA: 2.1 m2 MMode/2D Measurements & Calculations IVSd: 1.0 cm Ao root diam: 3.2 cm LVIDd: 4.9 cm LA dimension: 3.3 cm LVIDs: 3.6 cm LVPWd: 0.87 cm EDV(Teich): 114.1 ml LVOT diam: 2.1 cm ESV(Teich): 55.0 ml Doppler Measurements & Calculations MV E max jayce: 81.9 cm/sec Ao V2 max: 159.6 cm/sec MV A max jayce: 64.7 cm/sec Ao max P.2 mmHg MV E/A: 1.3 Ao V2 mean: 117.3 cm/sec MV dec time: 0.20 sec Ao mean P.0 mmHg Ao V2 VTI: 35.1 cm SULLY(V,D): 1.5 cm2 LV V1 max P.1 mmHg LV V1 max: 72.5 cm/sec Procedure The study was technically difficult with many images being suboptimal in quality. Left Ventricle The left ventricle is normal in size. Left ventricular systolic function is grossly normal. Ejection Fraction = 55-60%. The transmitral spectral Doppler flow pattern is normal for age. Regional wall motion abnor malities cannot be excluded due to limited visualization. Right Ventricle The right ventricle is normal in size and function. Atria Normal left and right atrial size and function. Mitral Valve The mitral valve is grossly normal. There is trace mitral regurgitation. Tricuspid Valve The tricuspid valve is not well visualized. There is trace tricuspid regurgitation. There was insuffi cient TR detected to calculate RV systolic pressure. Aortic Valve There is mild aortic sclerosis.;. The aortic valve opens well. No aortic regurgitation is present. Pulmonic Valve The pulmonic valve is not well visualized. Great Vessels The aortic root is normal size. Pericardium/Pleura There is no pericardial effusion. Interpretation Summary There is no comparison study available. The left ventricle is normal in size. The right ventricle is normal in size and function. Left ventricular systolic function is grossly normal. Ejection Fraction = 55-60%. There is trace tricuspid regurgitation. There is trace mitral regurgitation. Ralph Alvarez MD 09/23/2018 11:36 AM
--- NOTE | 2018-09-23 12:26 | EKG ---
Test Reason : Blood Pressure : / mmHG Vent. Rate : 065 BPM Atrial Rate : 065 BPM P-R Int : 218 ms QRS Dur : 086 ms QT Int : 402 ms P-R-T Axes : 065 034 012 degrees QTc Int : 418 ms SINUS RHYTHM WITH 1ST DEGREE A-V BLOCK OTHERWISE NORMAL ECG WHEN COMPARED WITH ECG OF 21-SEP-2018 19:48, NO SIGNIFICANT CHANGE WAS FOUND Confirmed by STACY SKAGGS, PAMELA ([id number]) on 09/23/2018 12:25:44 PM Referred By: DR ZAMORA Confirmed By:PAEMLA KUMAR MD
--- NOTE | 2018-09-23 12:45 | PN ---
Progress Note, Physician History of Present Illness: Patient is a 63 year old male of [place] with underlying history of HTN, hypercholesterolemia and DM who presents with left substernal chest pressure radiating to left arm. This happened several time prompting him to come into the hospital. His initial troponin was negative, but it has increased to 0.75. He had chest pressure again last night and thus was started on Heparin drip. He appears comfortable this morning. He denies shortness of breath or palpitations. He denies paroxysmal nocturnal dyspnea or orthopnea. He denies fever or chills. He denies nausea, vomiting, diarrhea or abdominal pain. He denies headache or lightheadedness. [employer] Targeting Supervisor: Jorden Grande MD - Current Medication List Current Medications: Active Medications Amlodipine Besylate (Norvasc -) 10 mg PO DAILY [facility] Last Admin: 09/23/18 09:41 Dose: 10 mg Aspirin (Ecotrin -) 325 mg PO DAILY [facility] Last Admin: 09/23/18 09:41 Dose: 325 mg Atorvastatin Calcium (Lipitor -) 80 mg PO HS [facility] Last Admin: 09/22/18 22:21 Dose: 80 mg Heparin Sodium (Porcine) (Heparin -) 1,000 unit IVPUSH PRN PRN PRN Reason: Heparin Heparin Sodium (Porcine) (Heparin -) 5,000 unit IVPUSH PRN PRN PRN Reason: Heparin Last Admin: 09/22/18 06:51 Dose: 5,000 unit Heparin Sodium/Dextrose (Heparin Infusion -) 25,000 units in 500 mls @ 20 mls/ hr IVPB TITR [facility]; Protocol Last Admin: 09/23/18 06:21 Dose: 1,000 units/hr, 20 mls/hr Insulin Aspart (Novolog Vial Sliding Scale -) 1 vial SQ ACHS [facility]; Protocol Last Admin: 09/23/18 06:15 Dose: Not Given Insulin Detemir (Levemir Vial) 54 units SQ HS [facility] Last Admin: 09/22/18 21:44 Dose: 54 units Nebivolol (Bystolic -) 20 mg PO DAILY [facility] Last Admin: 09/23/18 09:46 Dose: 20 mg Nitroglycerin (Nitrostat -) 0.4 mg SL Q5M PRN PRN Reason: FOR CHEST PAIN Pantoprazole Sodium (Protonix Iv) 40 mg IVPUSH DAILY [facility] Last Admin: 09/23/18 09:41 Dose: 40 mg - Objective Vital Signs: Vital Signs Temperature 97.8 F 09/23/18 10:00 Pulse Rate 56 L 09/23/18 10:00 Respiratory Rate 22 H 09/23/18 10:00 Blood Pressure 146/78 09/23/18 10:00 O2 Sat by Pulse Oximetry (%) 96 09/23/18 09:00 Eyes: Yes: WNL, Conjunctiva Clear, EOM Intact HENT: Yes: WNL, Atraumatic, Normocephalic Neck: Yes: WNL, Supple, Trachea Midline Cardiovascular: Yes: WNL, Regular Rate and Rhythm Respiratory: Yes: WNL, Regular, CTA Bilaterally Gastrointestinal: Yes: WNL, Normal Bowel Sounds Genitourinary: Yes: WNL Musculoskeletal: Yes: WNL Extremities: Yes: WNL Edema: No Integumentary: Yes: WNL Neurological: Yes: WNL, Alert, Oriented ...Motor Strength: WNL Psychiatric: Yes: WNL Labs: CBC, BMP 09/22/18 08:00 09/22/18 08:00 INR, PTT INR 1.02 (0.82-1.09) 09/21/18 11:24 Assessment/Plan 1. Clinical presentation c/w ACS/NSTEMI 2. HTN 3. DM 4. Hypercholesterolemia 5. ? COPD PLAN: 1. Continue Heparin drip 2. ASA + Plavix 3. Continue Bystolic 20 mg QD 4. Lipitor 80 mg QD 5. Continue Amlodipine 6. c. cath - awaiting transfer to [facility]
[2018-09-23] MEDS ORDERED: CLOPIDOGREL BISULFATE 75 MG TABLET (FP) PO SCH (13:00)
[2018-09-24] MEDS ORDERED: ASPIRIN COATED 81 MG TABLET.EC PO SCH (10:00)
--- NOTE | 2018-09-24 10:56 | EKG ---
Test Reason : Blood Pressure : / mmHG Vent. Rate : 060 BPM Atrial Rate : 060 BPM P-R Int : 216 ms QRS Dur : 086 ms QT Int : 420 ms P-R-T Axes : 063 047 032 degrees QTc Int : 420 ms SINUS RHYTHM WITH 1ST DEGREE A-V BLOCK OTHERWISE NORMAL ECG WHEN COMPARED WITH ECG OF 21-SEP-2018 14:56, NO SIGNIFICANT CHANGE WAS FOUND Confirmed by MD Gt, Elpidio ([id number]) on 09/24/2018 10:55:59 AM Referred By: ARTHUR/JUDITH Confirmed By:Elpidio Del Real MD
--- NOTE | 2018-09-24 10:59 | EKG ---
Test Reason : Blood Pressure : / mmHG Vent. Rate : 057 BPM Atrial Rate : 057 BPM P-R Int : 210 ms QRS Dur : 088 ms QT Int : 420 ms P-R-T Axes : 057 027 006 degrees QTc Int : 408 ms SINUS BRADYCARDIA WITH 1ST DEGREE A-V BLOCK LEFT AXIS DEVIATION WHEN COMPARED WITH ECG OF 22-SEP-2018 02:05, PREVIOUS ECG IS PRESENT COMPARED TO EKG NO SIGNIFICANT CHANGE IS FOUND Confirmed by MD Gt, Elpidio ([id number]) on 09/24/2018 10:58:50 AM Referred By: LIS Confirmed By:Elpidio Del Real MD
== END 2018-09-23 13:42 | disposition short-term general hospital (02) | DRG 282 ==
LOC: FER 10:24 → INTOOBSV 16:07 → FM/S 16:07 → OBSVTOIN 09-22 09:15 → J4W 09-22 17:14
DX: I21.4 Non-ST elevation (NSTEMI) myocardial infarction (principal); R07.89 Other chest pain; I24.9 Acute ischemic heart disease, unspecified; I10 Essential (primary) hypertension; E11.9 Type 2 diabetes mellitus without complications; E78.00 Pure hypercholesterolemia, unspecified; K21.9 Gastro-esophageal reflux disease without esophagitis; Z79.4 Long term (current) use of insulin
CPT/HCPCS: 36415; 71046-TC-FY; 80053; 80061; 82550; 82962; 83036; 83735; 84443; 84484; 85025; 85379; 85610; 85730; 93005; 93306-TC; 99283-25; G0378; J1644